=== PATIENT | female | born 1980 | race African-American/Black ===

== ENCOUNTER → 2020-06-10 | Outpatient (CLI) | payer OTHER ==
[~2020-06-10] MED LIST: LO LOESTRIN FE1 EACH PO; PRENATAL PO
== END ==
LOC: CAT 14:45
PROVIDERS: ATTEND Family Medicine
DX: N83.8 Other noninflammatory disorders of ovary, fallopian tube and broad ligament (principal); D16.20 Benign neoplasm of long bones of unspecified lower limb